=== PATIENT | male | born 2000 | race Caucasian/White ===

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

== ENCOUNTER 2022-02-16 16:23 | Emergency (ER) | payer OTHER ==
[~2022-02-16] VITALS: Ht 177.8 cm; Wt 68.0 kg
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
[2022-02-16 16:53] LABS: BASOPHILS # (AUTO) 0.1 10^3/uL (0.0-0.1); BASOPHILS % (AUTO) 0 % (0-10); EOSINOPHILS # (AUTO) 0.2 10^3/uL (0.0-0.3); EOSINOPHILS % (AUTO) 1 % (0-10); HEMATOCRIT 43 % (40-54); HEMOGLOBIN 15.2 g/dL (13.3-17.7); LYMPHOCYTES # (AUTO) 2.4 10^3/uL (1.0-4.0); LYMPHOCYTES % (AUTO) 14 % (12-44); MEAN CORPUSCULAR HEMOGLOBIN 32 pg (25-34); MEAN CORPUSCULAR HGB CONC 35 g/dL (32-36); MEAN CORPUSCULAR VOLUME 90 fL (80-99); MEAN PLATELET VOLUME 10.4 fL (9.0-12.2); MONOCYTES # (AUTO) 0.8 10^3/uL (0.0-1.0); MONOCYTES % (AUTO) 5 % (0-12); NEUTROPHILS # (AUTO) 13.4 10^3/uL (1.8-7.8); NEUTROPHILS % (AUTO) 78 % (42-75); PLATELET COUNT 220 10^3/uL (130-400); WHITE BLOOD COUNT 17.2 10^3/uL (4.3-11.0)
[2022-02-16 17:01] LABS: INR 0.9 (0.8-1.4); PROTHROMBIN TIME PATIENT 12.8 SEC (12.2-14.7)
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
[2022-02-16 17:08] LABS: ALANINE AMINOTRANSFERASE 13 U/L (0-55); ALKALINE PHOSPHATASE 111 U/L (40-136); BILIRUBIN,TOTAL 0.2 MG/DL (0.1-1.0); BUN/CREATININE RATIO 15; CALCIUM 9.5 MG/DL (8.5-10.1); CARBON DIOXIDE 25 MMOL/L (21-32); CHLORIDE 104 MMOL/L (98-107); GFR ESTIMATED 131; GLUCOSE 88 MG/DL (70-105); MAGNESIUM 1.8 MG/DL (1.6-2.4); POTASSIUM 3.7 MMOL/L (3.6-5.0); SODIUM 139 MMOL/L (135-145)
[2022-02-16 17:09] LABS: ALBUMIN 4.7 GM/DL (3.2-4.5); LIPASE 16 U/L (8-78); TOTAL PROTEIN 6.8 GM/DL (6.4-8.2)
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
[2022-02-16] MEDS ORDERED: IOHEXOL 350 MG/ML 100 ML (OMNIPAQUE 350) VIAL IV ONE (17:15)
[2022-02-16] MEDS ORDERED: NS 100 ML (IVPB) BAG IV ONE (17:15)
[2022-02-16] MEDS ORDERED: HOLD METFORMIN - RECEIVED CONTRAST 20 ML VIAL IV SCH (17:15)
[2022-02-16] MEDS ORDERED: CATHETER FLUSH 10 ML SYR IV PRN (17:15)
[2022-02-16 17:16] LABS: BAND NEUTROPHILS 2 %; EOSINOPHILS % (MANUAL) 2 %; LYMPHOCYTES % (MANUAL) 19 %; METAMYELOCYTES % 1 %; MONOCYTES % (MANUAL) 4 %; NEUTROPHILS % (MANUAL) 72 %; PLATELET CLUMPS OCCASIONAL
[2022-02-16 17:17] LABS: RBC MORPH NORMAL
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
[2022-02-16] MEDS ORDERED: OFLO5DRO33 LEFT EAR (18:17)
[2022-02-16 18:21] VITALS: BP 114/67
== END 2022-02-16 18:23 | disposition home or self-care (01) ==
LOC: EDUNIT# 16:23 → ER FS 16:25
DX: S16.1XXA Strain of muscle, fascia and tendon at neck level, initial encounter (principal); S43.402A Unspecified sprain of left shoulder joint, initial encounter; S00.03XA Contusion of scalp, initial encounter; S00.83XA Contusion of other part of head, initial encounter; S10.93XA Contusion of unspecified part of neck, initial encounter; S80.02XA Contusion of left knee, initial encounter; R07.89 Other chest pain; H60.92 Unspecified otitis externa, left ear; Z28.310 Unvaccinated for COVID-19; V89.2XXA Person injured in unspecified motor-vehicle accident, traffic, initial encounter; Y92.410 Unspecified street and highway as the place of occurrence of the external cause; Y99.1 Military activity
CPT/HCPCS: 36415; 70450; 70486; 71045; 71260; 72125; 73030; 73562; 74177; 80053; 80320; 83690; 83735; 85007; 85027; 85610; 85730; Q9967

== ENCOUNTER 2022-09-13 07:49 | Emergency (ER) | payer OTHER ==
[~2022-09-13] VITALS: Ht 175.3 cm; Wt 63.5 kg
[~2022-09-13 07:49] MED LIST: OFLO5DRO33 LEFT EAR
--- NOTE | 2022-09-13 08:14 | ED Chest Pain ---
General Chief Complaint: Chest Pain Stated Complaint: CHEST PAIN Nursing Triage Note: PT AMBULATE TO ROOM FS06 WITHOUT DIFFICULTY WITH C/O CHEST PAIN STARTING THIS MORING. PT REPORTS COUGH AND SOB STARTING YESTERDAY. Source: patient, RN notes reviewed Exam Limitations: no limitations History of Present Illness Date Seen by Provider: Sep 13, 2022 Time Seen by Provider: 07:58 Initial Comments 21-year-old male patient presented POV with complaining of chest pain. Patient complaining of stabbing substernal chest with radiation to his back and associated with shortness of breath as a constant pain since he woke up at 5 AM to go to work as a 4/10 pain that gradually getting worse and rated his pain 7/10 at arrival to ER. Patient stated the pain getting worse with movement and taking a deep breath and cough. Patient did not take pain medication today. Patient complaining of mild cough since yesterday with shortness of breath and is stated he is a heavy smoker. Patient stated he cut trees yesterday. Patient denies history of chest pain but according to EMR he was seen in this emergency room in October 2021 with complaining of chest pain for several months and had negative extensive cardiac evaluation. Allergies and Home Medications Allergies Coded Allergies: No Known Drug Allergies (Unverified , 11/11/21) Patient Home Medication List Home Medication List Reviewed: Yes Ibuprofen (Ibuprofen) 600 Mg Tablet, 600 MG PO Q8H PRN for PAIN-MILD Prescribed by: Jackie montalvo on 09/13/22 0817 Ofloxacin (Floxin (Non-Formulary)) 0.3 % Drops, 10 DROPS LEFT EAR DAILY Prescribed by: LUC HART on 02/16/22 1817 Review of Systems Review of Systems Constitutional: no symptoms reported EENTM: No Symptoms Reported Respiratory: See HPI Cardiovascular: See HPI Gastrointestinal: No Symptoms Reported Genitourinary: No Symptoms Reported Musculoskeletal: see HPI Skin: no symptoms reported Psychiatric/Neurological: No Symptoms Reported Endocrine: No Symptoms Reported Hematologic/Lymphatic: No Symptoms Reported All Other Systems Reviewed Negative Unless Noted: Yes Past Xbxigfp-[id number]-Fsbelo Hx Patient Social History Tobacco Use?: Yes Tobacco type used: Cigarettes Smoking Status: Heavy Tobacco Smoker Smokeless Tobacco Frequency: Never a User Use of E-Cig and/or Vaping dev: No Use of E-Cig and/or Vaping Mario: Never a User Substance use?: Yes Substance type: Marijuana Substance frequency: Daily Alcohol Use?: No Pt feels they are or have been: No Immunizations Up To Date First/Initial COVID19 Vaccinat: not vaccinated Second COVID19 Vaccination Dru: not vaccinated Third COVID19 Vaccination Date: not vaccinated Past Medical History Surgery/Hospitalization HX: autistic, ADHD, Depression Surgeries: No Physical Exam Vital Signs Vital Signs - First Documented 09/13/22 07:49 Temp 37.2 Pulse 77 Resp 17 B/P (MAP) 145/86 (105) O2 Delivery Room Air Capillary Refill : Less Than 3 Seconds Height, Weight, BMI Height: '" Weight: lbs. oz. kg; 20.00 BMI Method: General Appearance: No Apparent Distress, WD/WN HEENT: PERRL/EOMI, Normal ENT Inspection, Pharynx Normal Neck: Full Range of Motion, Normal Inspection, Non Tender Respiratory: Lungs Clear, Normal Breath Sounds, No Accessory Muscle Use, No Respiratory Distress, Other (Reproducible chest wall pain) Cardiovascular: Regular Rate, Rhythm, No Edema, No Gallop, No JVD, No Murmur, Normal Peripheral Pulses Gastrointestinal: Normal Bowel Sounds, No Organomegaly, No Pulsatile Mass, Non Tender Extremity: Normal Capillary Refill, Normal Inspection, Normal Range of Motion, Non Tender, No Calf Tenderness, No Pedal Edema Neurologic/Psychiatric: Alert, Oriented x3, No Motor/Sensory Deficits, Normal Mood/Affect Skin: Normal Color, Warm/Dry Lymphatic: No Adenopathy Progress/Results/Core Measures Results/Orders My Orders Orders - JACKIE MONTALVO MD Ibuprofen Tablet (Motrin Tablet) (09/13/22 08:15) Vital Signs/I&O 09/13/22 07:49 Temp 37.2 Pulse 77 Resp 17 B/P (MAP) 145/86 (105) O2 Delivery Room Air Blood Pressure Mean: 105 Progress Progress Note : Progress Note 21-year-old male patient with complaining of chest wall pain since this morning after cutting trees yesterday. Patient had reproducible chest pain. Patient had a stable vital sign. EKG interpreted by me did not show acute finding. Patient emphasizing on work excuse frequently. Patient treated with ibuprofen in ER and prescription for ibuprofen was given and advised to apply ice and quit smoking and 1 day work excuse was given. Initial ECG Impression Date: Sep 13, 2022 Initial ECG Impression Time: 07:56 Initial ECG Rate: 62 Initial ECG Rhythm: Normal Sinus (With sinus arrhythmia) Initial ECG Intervals: Normal Initial ECG Impression: Normal Comment EKG interpreted by me. EKG showed sinus rhythm with sinus arrhythmia, [place] interval of 123, QT intervals of 380, QTc interval of 385, QRS duration of 86, normal P axis, no acute ST and T wave elevation. Departure Impression Primary Impression: Chest wall pain Additional Impression: Tobacco consumption Disposition: 01 HOME, SELF-CARE Condition: Stable Departure-Patient Inst. Decision time for Depature: 08:12 Referrals: NO,LOCAL PHYSICIAN (PCP) Primary Care Physician Patient Instructions: Chest Pain That Is Not Caused by the Heart (DC), Drugs to Help You Stop Using Tobacco, Muscle Strain ED Add. Discharge Instructions: Apply ice on the affected area Drink plenty of liquid Follow-up with your primary care physician in 2 or 3 days Return to ER as needed All discharge instructions reviewed with patient and/or family. Voiced understanding. Scripts Ibuprofen (Ibuprofen) 600 Mg Tablet 600 MG PO Q8H PRN for PAIN-MILD, #30 TAB Prov: JACKIE MONTALVO MD 09/13/22 Work/School Note: Work Release Form Date Seen in the Emergency Department: Sep 13, 2022 Return to Work: Sep 14, 2022 JACKIE MONTALVO MD Sep 13, 2022 08:14
[2022-09-13] MEDS ORDERED: IBUPROFEN 600 MG (MOTRIN) TAB PO ONE (08:15)
[2022-09-13] MEDS ORDERED: IBUP-1773 PO (08:17)
[2022-09-13 08:22] VITALS: BP 117/68
== END 2022-09-13 08:22 | disposition home or self-care (01) ==
LOC: EDUNIT# 07:49 → ER FS 07:50
DX: R07.2 Precordial pain (principal); F17.210 Nicotine dependence, cigarettes, uncomplicated; Z28.310 Unvaccinated for COVID-19
CPT/HCPCS: 93005